=== PATIENT | female | born 1935 | race Caucasian/White ===

== ENCOUNTER 2018-09-13 20:15 | Inpatient (IN) | payer MEDICARE, OTHER ==
[2018-09-13 20:49] LABS: AADO2 Arterial 623.6 mmHg (7.0-24.0); Allen Test ACCEPTAB; Arterial Base Excess 4.6 mmol/L (-3.0-3); Arterial Blood Gas Oxygen Sat 85.9 mmHG (95.0-100.0); Arterial COHb 0.3 % (0.0-3.0); Arterial Fraction of Oxyhgb 85.5 % (93.0-99.0); Arterial HCO3 28.4 mmol/L (22.0-26.0); Arterial MetHb 0.2 % (0.0-1.5); Arterial pCO2 39.1 mmhg (35-45); Blood Gas IEPAP 15/5; MODE MASK - BIPAP; Site Right Radial
[2018-09-13] MEDS ORDERED: ETOMIDATE 20 MG INJ (21:00)
[2018-09-13] MEDS ORDERED: SUCCINYLCHOLINE CHLORIDE 100 MG/5 ML SYG IV (21:00)
[2018-09-13] MEDS: PROPOFOL 100 ML IV (22:00)
[2018-09-13] MEDS ORDERED: VANCOMYCIN IV PER PHARMACY XX (22:30)
[2018-09-13 22:43] LABS: AADO2 Arterial 604.1 mmHg (7.0-24.0); Arterial Base Excess -0.9 mmol/L (-3.0-3); Arterial Blood Gas Oxygen Sat 85.9 mmHG (95.0-100.0); Arterial COHb 0.3 % (0.0-3.0); Arterial Fraction of Oxyhgb 85.5 % (93.0-99.0); Arterial HCO3 25.4 mmol/L (22.0-26.0); Arterial MetHb 0.2 % (0.0-1.5); Arterial pCO2 49.6 mmhg (35-45); MODE VENT - AC; Site LB
[2018-09-13] MEDS ORDERED: HYDROCODONE/APAP (5/325) TAB NGT ×2 (23:00)
[2018-09-13] MEDS: MEROPENEM 1 GM/50ML(PMX) 50 ML IVPB (23:41)
[2018-09-13] MEDS ORDERED: GLUCOSE GEL 15 GRAM TUBE PO ×2 (23:45)
[2018-09-13] MEDS ORDERED: DEXTROSE 50% 50 ML SYRINGE IV ×2 (23:45)
[2018-09-13] MEDS ORDERED: GLUCOSE GEL 15 GRAM TUBE BUCCAL (23:45)
[2018-09-13] MEDS ORDERED: GLUCAGON 1 MG INJ IM (23:45)
[2018-09-14] MEDS: SOD CHLORIDE 0.9% 1,000 ML IV (00:37)
[2018-09-14] MEDS: VANCOMYCIN HCL 1.25 GM in SOD CHLORIDE 0.9% 250 ML IVPB (01:35)
[2018-09-14] MEDS: NORepinephrine 8MG/250 ML (PMX 250 ML IV ×3 (01:41→22:43)
[2018-09-14] MEDS: INSULIN ASPART [NOVOLOG] 3 ML PEN SC ×6 (01:58→21:00)
[2018-09-14] MEDS: IPRATROPIUM (NEB) 0.5 MG/2.5 ML AMP HHN (03:10)
[2018-09-14] MEDS ORDERED: ACETAMINOPHEN 650MG/20.3ML CUP NGT (03:30)
[2018-09-14] MEDS ORDERED: ALBUTEROL 0.083% (NEB) 2.5 MG/3 ML AMP HHN (05:00)
[2018-09-14 05:29] LABS: WHITE BLOOD COUNT 28.6 10^3/ul (4.8-10.8)
[2018-09-14 05:29] LABS: ABNORMAL IP MESSAGE 1; HEMATOCRIT 31.2 % (37.0-47.0); HEMOGLOBIN 9.7 g/dl (12.0-16.0); MEAN CORPUSCULAR HEMOGLOBIN 18.6 pg (29.0-33.0); MEAN CORPUSCULAR HGB CONC 31.1 g/dl (32.0-37.0); MEAN CORPUSCULAR VOLUME 59.8 fl (82.0-101.0); NUCLEATED RED BLOOD CELLS% 0.1 /100WBC (0.0-0.0); PLATELET COUNT 182 10^3/UL (140-415); RED BLOOD COUNT 5.22 10^6/ul (4.20-5.40); RED CELL DISTRIBUTION WIDTH 17.9 % (11.5-14.5)
[2018-09-14 05:43] LABS: ADD MAN DIFF? YES; POSITIVE DIFF @See below
[2018-09-14] MEDS: FUROSEMIDE 20 MG INJ IV ×2 (05:43→18:12)
[2018-09-14 05:55] LABS: ANION GAP 6 (5-13); BLOOD UREA NITROGEN 35 mg/dl (7-20); CALCIUM 7.8 mg/dl (8.4-10.2); CARBON DIOXIDE 29 mmol/L (21-31); CHLORIDE 103 mmol/L (97-110); CREATININE 0.69 mg/dl (0.44-1.00); GLUCOSE 146 mg/dl (70-220); SODIUM 138 mmol/L (135-144)
[2018-09-14 06:05] LABS: PREALBUMIN 8.3 mg/dl (17.6-36.0)
[2018-09-14 06:19] LABS: AADO2 Arterial 593.7 mmHg (7.0-24.0); Arterial Base Excess 2.1 mmol/L (-3.0-3); Arterial Blood Gas Oxygen Sat 94.8 mmHG (95.0-100.0); Arterial COHb 0.3 % (0.0-3.0); Arterial Fraction of Oxyhgb 94.1 % (93.0-99.0); Arterial HCO3 26.2 mmol/L (22.0-26.0); Arterial MetHb 0.4 % (0.0-1.5); Arterial pCO2 38.8 mmhg (35-45); MODE VENT - AC; Site LB
[2018-09-14] MEDS ORDERED: ALBUTEROL 0.083% (NEB) 2.5 MG/3 ML AMP INH (09:00)
[2018-09-14] MEDS ORDERED: IPRATROPIUM (NEB) 0.5 MG/2.5 ML AMP INH (09:00)
[2018-09-14] MEDS: LOSARTAN 25 MG TAB NGT (09:00)
[2018-09-14] MEDS: IPRATROPIUM (HFA) 12.9 GM INHALER INH ×4 (09:29→21:14)
[2018-09-14] MEDS: ALBUTEROL HFA 8 GM INHALER INH (09:29)
[2018-09-14] MEDS: NYSTATIN 30 GM POWDER BTL TOP ×3 (09:38→21:24)
[2018-09-14] MEDS: BALSAM PERU/CASTOR OIL 60 GM TUBE TOP (09:39)
[2018-09-14] MEDS: PROPOFOL 100 ML IV ×2 (09:40→22:42)
[2018-09-14] MEDS: MULTIVITAMINS/MINERALS TAB NGT (09:52)
[2018-09-14] MEDS: CITALOPRAM 20 MG TAB NGT (09:52)
[2018-09-14] MEDS: ASCORBIC ACID 500 MG TAB NGT ×2 (09:52→21:23)
[2018-09-14] MEDS: CHOLECALCIFEROL 1,000 UNIT TAB NGT (09:52)
[2018-09-14] MEDS: CA CARBONATE (250 MG/ML) 5ML CUP NGT (09:52)
[2018-09-14] MEDS: AMIODARONE 200 MG TAB NGT (09:52)
[2018-09-14] MEDS: COLLAGENASE 5 GM (UD JAR) TOP (09:52)
[2018-09-14] MEDS: APIXABAN 5 MG TABLET NGT ×2 (09:53→21:24)
[2018-09-14] MEDS: MEROPENEM 1 GM/50ML(PMX) 50 ML IVPB ×2 (09:53→21:23)
[2018-09-14] MEDS: FAMOTIDINE 20 MG TAB NGT ×2 (09:53→21:23)
[2018-09-14] MEDS: METOPROLOL 25 MG TAB NGT ×2 (09:53→21:23)
[2018-09-14 10:50] LABS: ADD UMIC YES; ANISOCYTOSIS 1+ (0-0); BAND NEUTROPHILS #M 1.4 10^3/ul (0.0-0.6); BAND NEUTROPHILS % (M) 5 % (0-4); BURR CELLS 2+ (0-0); ELLIPTO 1+ (0-0); ERYTHROBLAST% (NRBC) (M) 1 % (0-0); GIANT THROMBO% (M) 1 % (0-0); HYPOCHROMASIA 2+ (0-0); LYMPHOCYTES #M 2.2 10^3/ul (0.8-2.9); LYMPHOCYTES % (M) 8 % (15-51); METAMYELOCYTES #M 0.5 10^3/ul (0.0-0.0); METAMYELOCYTES %M 2 % (0-0); MICROCYTOSIS 2+ (0-0); MYELOCYTES #M 0.5 10^3/ul (0.0-0.0); MYELOCYTES % (M) 2 % (0-0); OVALOCYTES 1+ (0-0); PLATELET ESTIMATE NORMAL; POIKILOCYTOSIS 2+ (0-0); POLYCHROMASIA 2+ (0-0); SEG NEUT #M 24.1 10^3/ul (1.6-7.5); SEGMENTED NEUTROPHILS (M) % 83 % (39-77); SMUDGE%M 27 % (0-0); STOMATOCYTES 1+ (0-0); TARGET CELLS 1+ (0-0); TEAR DROP CELLS 1+ (0-0); UR ASCORBIC ACID 40 mg/dL (NEGATIVE); UR BACTERIA FEW /HPF (NONE SEEN); UR BILIRUBIN (Dip) NEGATIVE (NEGATIVE); UR BLOOD (Dip) NEGATIVE (NEGATIVE); UR BUDDING YEAST MANY /HPF (NONE SEEN); UR CLARITY TURBID (CLEAR); UR COLOR AMBER (YELLOW); UR GLUCOSE (Dip) NEGATIVE (NEGATIVE); UR KETONES (Dip) NEGATIVE (NEGATIVE); UR LEUKOCYTE ESTERASE (Dip) 1+ Leu/ul (NEGATIVE); UR MUCUS MANY /HPF (NONE SEEN); UR NITRITE (Dip) NEGATIVE (NEGATIVE); UR RBC > 182 /HPF (0-5); UR SPECIFIC GRAVITY (Dip) 1.018 (1.003-1.030); UR TOTAL PROTEIN (Dip) 2+ mg/dl (NEGATIVE); UR UROBILINOGEN (Dip) NEGATIVE (NEGATIVE); UR WBC 67 /HPF (0-5)
[2018-09-14 12:56] LABS: LACTIC ACID 1.8 mmol/L (0.5-2.0)
[2018-09-14] MEDS: LEVALBUTEROL (HFA) 15 GM INHALER INH ×3 (13:27→21:14)
[2018-09-14 17:48] LABS: LACTIC ACID 1.5 mmol/L (0.5-2.0)
[2018-09-14] MEDS: CASPOFUNGIN 70 MG in NS 250 ML IVPB (20:18)
[2018-09-14] MEDS: ATORVASTATIN 10 MG TAB NGT (21:23)
[2018-09-15] MEDS: INSULIN ASPART [NOVOLOG] 3 ML PEN SC ×6 (00:15→20:41)
[2018-09-15] MEDS: VANCOMYCIN 1 GM 250 ML IVPB ×2 (00:16→23:21)
[2018-09-15] MEDS: LEVALBUTEROL (HFA) 15 GM INHALER INH ×6 (01:17→21:26)
[2018-09-15] MEDS: IPRATROPIUM (HFA) 12.9 GM INHALER INH ×6 (01:17→21:26)
[2018-09-15 05:22] LABS: ADD MAN DIFF? NO
[2018-09-15 05:31] LABS: BASOPHIL # 0.1 10^3/ul (0.0-0.1); BASOPHILS % 0.2 % (0.0-2.0); EOSINOPHILS % 0.1 % (0.0-7.0); HEMATOCRIT 26.3 % (37.0-47.0); HEMOGLOBIN 8.3 g/dl (12.0-16.0); LYMPHOCYTES # 2.3 10^3/ul (0.8-2.9); LYMPHOCYTES % 11.2 % (15.0-51.0); MEAN CORPUSCULAR HEMOGLOBIN 18.7 pg (29.0-33.0); MEAN CORPUSCULAR HGB CONC 31.6 g/dl (32.0-37.0); MEAN CORPUSCULAR VOLUME 59.4 fl (82.0-101.0); MONOCYTE # 0.6 10^3/ul (0.3-0.9); MONOCYTES % 2.8 % (0.0-11.0); NEUTROPHIL # 16.9 10^3/ul (1.6-7.5); NEUTROPHILS % 82.6 % (39.0-77.0); PLATELET COUNT 168 10^3/UL (140-415); RED BLOOD COUNT 4.43 10^6/ul (4.20-5.40)
[2018-09-15 05:31] LABS: WHITE BLOOD COUNT 20.5 10^3/ul (4.8-10.8)
[2018-09-15] MEDS: FUROSEMIDE 20 MG INJ IV ×2 (06:00→17:38)
[2018-09-15 06:06] LABS: ANION GAP 3 (5-13); BLOOD UREA NITROGEN 29 mg/dl (7-20); CALCIUM 7.5 mg/dl (8.4-10.2); CARBON DIOXIDE 32 mmol/L (21-31); CHLORIDE 105 mmol/L (97-110); CREATININE 0.45 mg/dl (0.44-1.00); GLUCOSE 113 mg/dl (70-220); SODIUM 140 mmol/L (135-144)
[2018-09-15] MEDS: LOSARTAN 25 MG TAB NGT (09:00)
[2018-09-15] MEDS: METOPROLOL 25 MG TAB NGT ×2 (09:00→20:32)
[2018-09-15] MEDS: PROPOFOL 100 ML IV (09:47)
[2018-09-15] MEDS: COLLAGENASE 5 GM (UD JAR) TOP (09:47)
[2018-09-15] MEDS: BALSAM PERU/CASTOR OIL 60 GM TUBE TOP (09:47)
[2018-09-15] MEDS: NYSTATIN 30 GM POWDER BTL TOP ×3 (09:47→20:32)
[2018-09-15] MEDS: MULTIVITAMINS/MINERALS TAB NGT (09:53)
[2018-09-15] MEDS: AMIODARONE 200 MG TAB NGT (09:54)
[2018-09-15] MEDS: APIXABAN 5 MG TABLET NGT ×2 (09:54→20:29)
[2018-09-15] MEDS: CHOLECALCIFEROL 1,000 UNIT TAB NGT (09:54)
[2018-09-15] MEDS: MEROPENEM 1 GM/50ML(PMX) 50 ML IVPB ×2 (09:54→20:29)
[2018-09-15] MEDS: CA CARBONATE (250 MG/ML) 5ML CUP NGT (09:54)
[2018-09-15] MEDS: ASCORBIC ACID 500 MG TAB NGT ×2 (09:54→20:29)
[2018-09-15] MEDS: CITALOPRAM 20 MG TAB NGT (09:54)
[2018-09-15] MEDS: FAMOTIDINE 20 MG TAB NGT ×2 (09:55→20:29)
[2018-09-15] MEDS ORDERED: METOPROLOL 5 MG INJ IV (10:00)
[2018-09-15] MEDS: POTASSIUM CHLORIDE (SR) 20 MEQ TAB PO (10:17)
[2018-09-15] MEDS: DIGOXIN 500 MCG INJ IV ×2 (10:17→16:25)
[2018-09-15] MEDS: MUPIROCIN 2% 22 GM OINT TOP ×2 (12:21→20:33)
[2018-09-15] MEDS: FENTAnyl (DRIP) 1000 mcg/100mL 100 ML IV (12:23)
[2018-09-15] MEDS: CASPOFUNGIN 50 MG in SOD CHLORIDE 0.9% 250 ML IVPB (19:51)
[2018-09-15] MEDS: ATORVASTATIN 10 MG TAB NGT (20:29)
[2018-09-16] MEDS: INSULIN ASPART [NOVOLOG] 3 ML PEN SC ×6 (00:25→20:23)
[2018-09-16] MEDS: IPRATROPIUM (HFA) 12.9 GM INHALER INH ×5 (01:26→20:32)
[2018-09-16] MEDS: LEVALBUTEROL (HFA) 15 GM INHALER INH ×5 (01:26→20:32)
[2018-09-16] MEDS: PROPOFOL 100 ML IV ×3 (02:24→15:16)
[2018-09-16 05:06] LABS: ADD MAN DIFF? NO
[2018-09-16 05:16] LABS: ABNORMAL IP MESSAGE 1; BASOPHIL # 0.1 10^3/ul (0.0-0.1); BASOPHILS % 0.3 % (0.0-2.0); HEMATOCRIT 29.2 % (37.0-47.0); HEMOGLOBIN 8.9 g/dl (12.0-16.0); LYMPHOCYTES # 2.4 10^3/ul (0.8-2.9); LYMPHOCYTES % 10.2 % (15.0-51.0); MEAN CORPUSCULAR HEMOGLOBIN 18.6 pg (29.0-33.0); MEAN CORPUSCULAR HGB CONC 30.5 g/dl (32.0-37.0); MEAN CORPUSCULAR VOLUME 61.1 fl (82.0-101.0); MONOCYTE # 0.7 10^3/ul (0.3-0.9); NEUTROPHIL # 19.2 10^3/ul (1.6-7.5); NEUTROPHILS % 82.2 % (39.0-77.0); NUCLEATED RED BLOOD CELLS% 0.2 /100WBC (0.0-0.0); PLATELET COUNT 185 10^3/UL (140-415); RED BLOOD COUNT 4.78 10^6/ul (4.20-5.40); RED CELL DISTRIBUTION WIDTH 17.2 % (11.5-14.5)
[2018-09-16 05:16] LABS: WHITE BLOOD COUNT 23.4 10^3/ul (4.8-10.8)
[2018-09-16 05:43] LABS: POSITIVE DIFF @See below
[2018-09-16] MEDS: FUROSEMIDE 20 MG INJ IV ×2 (05:50→17:59)
[2018-09-16 05:57] LABS: ANION GAP 0 (5-13)
[2018-09-16 05:58] LABS: BLOOD UREA NITROGEN 38 mg/dl (7-20); CALCIUM 7.9 mg/dl (8.4-10.2); CARBON DIOXIDE 35 mmol/L (21-31); CHLORIDE 107 mmol/L (97-110); CREATININE 0.44 mg/dl (0.44-1.00); GLUCOSE 145 mg/dl (70-220); POTASSIUM 4.6 mmol/L (3.5-5.1); SODIUM 142 mmol/L (135-144)
[2018-09-16 08:10] LABS: AADO2 Arterial 402.8 mmHg (7.0-24.0); Allen Test ACCEPTAB; Arterial Blood Gas Oxygen Sat 94.1 mmHG (95.0-100.0); Arterial COHb 0.3 % (0.0-3.0); Arterial Fraction of Oxyhgb 93.5 % (93.0-99.0); Arterial MetHb 0.3 % (0.0-1.5); Arterial pCO2 55.3 mmhg (35-45); MODE VENT - AC; Site Right Radial
[2018-09-16] MEDS: MEROPENEM 1 GM/50ML(PMX) 50 ML IVPB ×2 (08:19→20:15)
[2018-09-16] MEDS: CA CARBONATE (250 MG/ML) 5ML CUP NGT (08:23)
[2018-09-16] MEDS: CHOLECALCIFEROL 1,000 UNIT TAB NGT (08:23)
[2018-09-16] MEDS: METOPROLOL 25 MG TAB NGT ×2 (08:24→20:15)
[2018-09-16] MEDS: FAMOTIDINE 20 MG TAB NGT ×2 (08:24→20:15)
[2018-09-16] MEDS: AMIODARONE 200 MG TAB NGT (08:24)
[2018-09-16] MEDS: APIXABAN 5 MG TABLET NGT ×2 (08:25→20:15)
[2018-09-16] MEDS: LOSARTAN 25 MG TAB NGT (08:25)
[2018-09-16] MEDS: CITALOPRAM 20 MG TAB NGT (08:25)
[2018-09-16] MEDS: MULTIVITAMINS/MINERALS TAB NGT (08:28)
[2018-09-16] MEDS: ASCORBIC ACID 500 MG TAB NGT ×2 (08:28→20:15)
[2018-09-16] MEDS: ALPRAZOLAM 0.25 MG TAB NGT (08:32)
[2018-09-16] MEDS: BALSAM PERU/CASTOR OIL 60 GM TUBE TOP (08:38)
[2018-09-16] MEDS: MUPIROCIN 2% 22 GM OINT TOP ×2 (08:38→20:15)
[2018-09-16] MEDS: NYSTATIN 30 GM POWDER BTL TOP ×3 (08:38→20:15)
[2018-09-16] MEDS: COLLAGENASE 5 GM (UD JAR) TOP (15:03)
[2018-09-16] MEDS: NORepinephrine 8MG/250 ML (PMX 250 ML IV (15:14)
[2018-09-16] MEDS: FENTAnyl (DRIP) 1000 mcg/100mL 100 ML IV (16:17)
[2018-09-16] MEDS: LIDOCAINE 1% (MPF) 5 ML VIAL SC (16:33)
[2018-09-16] MEDS: CASPOFUNGIN 50 MG in SOD CHLORIDE 0.9% 250 ML IVPB (20:14)
[2018-09-16] MEDS: ATORVASTATIN 10 MG TAB NGT (20:15)
[2018-09-17 00:03] LABS: VANCOMYCIN,TROUGH 9.7 ug/ml (10.0-20.0)
[2018-09-17] MEDS: VANCOMYCIN 1 GM 250 ML IVPB (00:46)
[2018-09-17] MEDS: INSULIN ASPART [NOVOLOG] 3 ML PEN SC ×6 (00:51→22:11)
[2018-09-17] MEDS: IPRATROPIUM (HFA) 12.9 GM INHALER INH ×6 (01:05→20:05)
[2018-09-17] MEDS: LEVALBUTEROL (HFA) 15 GM INHALER INH ×6 (01:05→20:05)
[2018-09-17 05:27] LABS: ADD MAN DIFF? NO
[2018-09-17] MEDS: PROPOFOL 100 ML IV (05:31)
[2018-09-17] MEDS: FUROSEMIDE 20 MG INJ IV ×2 (05:34→17:42)
[2018-09-17 05:42] LABS: WHITE BLOOD COUNT 20.2 10^3/ul (4.8-10.8)
[2018-09-17 05:42] LABS: ABNORMAL IP MESSAGE 1; BASOPHIL # 0.1 10^3/ul (0.0-0.1); BASOPHILS % 0.3 % (0.0-2.0); EOSINOPHILS % 0.1 % (0.0-7.0); HEMATOCRIT 27.5 % (37.0-47.0); HEMOGLOBIN 8.1 g/dl (12.0-16.0); LYMPHOCYTES % 9.8 % (15.0-51.0); MEAN CORPUSCULAR HEMOGLOBIN 18.2 pg (29.0-33.0); MEAN CORPUSCULAR HGB CONC 29.5 g/dl (32.0-37.0); MEAN CORPUSCULAR VOLUME 61.8 fl (82.0-101.0); MONOCYTE # 0.9 10^3/ul (0.3-0.9); MONOCYTES % 4.6 % (0.0-11.0); NEUTROPHIL # 16.3 10^3/ul (1.6-7.5); NEUTROPHILS % 81.1 % (39.0-77.0); NUCLEATED RED BLOOD CELLS # 0.1 10^3/ul (0.0-0.0); NUCLEATED RED BLOOD CELLS% 0.4 /100WBC (0.0-0.0); PLATELET COUNT 172 10^3/UL (140-415); RED BLOOD COUNT 4.45 10^6/ul (4.20-5.40); RED CELL DISTRIBUTION WIDTH 17.4 % (11.5-14.5)
[2018-09-17 05:47] LABS: POSITIVE DIFF @See below
[2018-09-17 05:51] LABS: BLOOD UREA NITROGEN 38 mg/dl (7-20); CALCIUM 7.7 mg/dl (8.4-10.2); CHLORIDE 105 mmol/L (97-110); CREATININE 0.37 mg/dl (0.44-1.00); GLUCOSE 145 mg/dl (70-220); POTASSIUM 3.6 mmol/L (3.5-5.1); SODIUM 144 mmol/L (135-144)
[2018-09-17 06:06] LABS: ANION GAP -2 (5-13); CARBON DIOXIDE 41 mmol/L (21-31)
[2018-09-17] MEDS: LOSARTAN 25 MG TAB NGT (09:00)
[2018-09-17] MEDS: METOPROLOL 25 MG TAB NGT ×2 (09:00→21:00)
[2018-09-17] MEDS: CITALOPRAM 20 MG TAB NGT (09:22)
[2018-09-17] MEDS: ASCORBIC ACID 500 MG TAB NGT ×2 (09:22→22:00)
[2018-09-17] MEDS: MEROPENEM 1 GM/50ML(PMX) 50 ML IVPB ×2 (09:22→21:58)
[2018-09-17] MEDS: METHYLPREDNISOLONE 40 MG INJ IV ×3 (09:22→22:05)
[2018-09-17] MEDS: CA CARBONATE (250 MG/ML) 5ML CUP NGT (09:22)
[2018-09-17] MEDS: CHOLECALCIFEROL 1,000 UNIT TAB NGT (09:22)
[2018-09-17] MEDS: COLLAGENASE 5 GM (UD JAR) TOP (09:22)
[2018-09-17] MEDS: AMIODARONE 200 MG TAB NGT (09:23)
[2018-09-17] MEDS: MULTIVITAMINS/MINERALS TAB NGT (09:23)
[2018-09-17] MEDS: APIXABAN 5 MG TABLET NGT ×2 (09:23→22:04)
[2018-09-17] MEDS: NYSTATIN 30 GM POWDER BTL TOP ×3 (09:27→22:07)
[2018-09-17] MEDS: MUPIROCIN 2% 22 GM OINT TOP ×2 (09:27→22:07)
[2018-09-17] MEDS: FAMOTIDINE 20 MG TAB NGT ×2 (09:27→22:00)
[2018-09-17] MEDS: BALSAM PERU/CASTOR OIL 60 GM TUBE TOP (09:28)
[2018-09-17] MEDS: MIDAZOLAM (DRIP) 50 mg/50 mL 50 ML IV (11:39)
[2018-09-17] MEDS: FENTAnyl (DRIP) 1000 mcg/100mL 100 ML IV (11:52)
[2018-09-17 16:37] LABS: HIV 1&2 ANTIBODY NEGATIVE (NEGATIVE)
[2018-09-17] MEDS: CASPOFUNGIN 50 MG in SOD CHLORIDE 0.9% 250 ML IVPB (19:23)
[2018-09-17] MEDS: NORepinephrine 8MG/250 ML (PMX 250 ML IV (19:27)
[2018-09-17] MEDS: ATORVASTATIN 10 MG TAB NGT (21:58)
[2018-09-18] MEDS: LEVALBUTEROL (HFA) 15 GM INHALER INH ×4 (01:13→19:42)
[2018-09-18] MEDS: IPRATROPIUM (HFA) 12.9 GM INHALER INH ×4 (01:13→19:41)
[2018-09-18] MEDS: INSULIN ASPART [NOVOLOG] 3 ML PEN SC ×6 (01:26→21:32)
[2018-09-18] MEDS: VANCOMYCIN HCL 1.25 GM in SOD CHLORIDE 0.9% 250 ML IVPB (01:27)
[2018-09-18] MEDS: MIDAZOLAM (DRIP) 50 mg/50 mL 50 ML IV (01:31)
[2018-09-18] MEDS: FENTAnyl (DRIP) 1000 mcg/100mL 100 ML IV ×2 (03:45→11:23)
[2018-09-18] MEDS: METHYLPREDNISOLONE 40 MG INJ IV ×3 (05:06→21:19)
[2018-09-18] MEDS: NPH, HUMAN INSULIN ISOPHANE 3ML VIAL SC ×3 (05:07→21:32)
[2018-09-18] MEDS: FUROSEMIDE 20 MG INJ IV ×2 (05:13→17:25)
[2018-09-18 05:33] LABS: ADD MAN DIFF? NO
[2018-09-18 05:37] LABS: WHITE BLOOD COUNT 17.9 10^3/ul (4.8-10.8)
[2018-09-18 05:37] LABS: ABNORMAL IP MESSAGE 1; BASOPHILS % 0.1 % (0.0-2.0); HEMATOCRIT 26.9 % (37.0-47.0); LYMPHOCYTES # 1.8 10^3/ul (0.8-2.9); LYMPHOCYTES % 10.2 % (15.0-51.0); MEAN CORPUSCULAR HEMOGLOBIN 18.5 pg (29.0-33.0); MEAN CORPUSCULAR HGB CONC 29.7 g/dl (32.0-37.0); MEAN CORPUSCULAR VOLUME 62.1 fl (82.0-101.0); MONOCYTE # 0.3 10^3/ul (0.3-0.9); MONOCYTES % 1.7 % (0.0-11.0); NEUTROPHIL # 15.1 10^3/ul (1.6-7.5); NEUTROPHILS % 84.4 % (39.0-77.0); NUCLEATED RED BLOOD CELLS # 0.1 10^3/ul (0.0-0.0); NUCLEATED RED BLOOD CELLS% 0.5 /100WBC (0.0-0.0); PLATELET COUNT 151 10^3/UL (140-415); RED BLOOD COUNT 4.33 10^6/ul (4.20-5.40)
[2018-09-18 06:04] LABS: POSITIVE DIFF @See below
[2018-09-18 06:08] LABS: BLOOD UREA NITROGEN 49 mg/dl (7-20); CALCIUM 7.6 mg/dl (8.4-10.2); CHLORIDE 100 mmol/L (97-110); CREATININE 0.47 mg/dl (0.44-1.00); GLUCOSE 218 mg/dl (70-220); MAGNESIUM 2.4 mg/dl (1.7-2.5); PHOSPHORUS 2.2 mg/dl (2.5-4.9); POTASSIUM 4.2 mmol/L (3.5-5.1); SODIUM 143 mmol/L (135-144)
[2018-09-18 06:25] LABS: ANION GAP 0 (5-13); CARBON DIOXIDE 43 mmol/L (21-31)
[2018-09-18] MEDS: CA CARBONATE (250 MG/ML) 5ML CUP NGT (08:26)
[2018-09-18] MEDS: CITALOPRAM 20 MG TAB NGT (08:26)
[2018-09-18] MEDS: CHOLECALCIFEROL 1,000 UNIT TAB NGT (08:26)
[2018-09-18] MEDS: APIXABAN 5 MG TABLET NGT ×2 (08:26→21:18)
[2018-09-18] MEDS: MEROPENEM 1 GM/50ML(PMX) 50 ML IVPB (08:26)
[2018-09-18] MEDS: ASCORBIC ACID 500 MG TAB NGT ×2 (08:27→21:18)
[2018-09-18] MEDS: AMIODARONE 200 MG TAB NGT (08:27)
[2018-09-18] MEDS: METOPROLOL 25 MG TAB NGT (08:27)
[2018-09-18] MEDS: FAMOTIDINE 20 MG TAB NGT ×2 (08:27→21:18)
[2018-09-18] MEDS: LOSARTAN 25 MG TAB NGT (08:28)
[2018-09-18] MEDS: COLLAGENASE 5 GM (UD JAR) TOP (08:28)
[2018-09-18] MEDS: MUPIROCIN 2% 22 GM OINT TOP ×2 (08:39→21:16)
[2018-09-18] MEDS: NYSTATIN 30 GM POWDER BTL TOP ×3 (08:39→21:16)
[2018-09-18] MEDS: BALSAM PERU/CASTOR OIL 60 GM TUBE TOP (08:39)
[2018-09-18] MEDS: MULTIVITAMINS/MINERALS TAB NGT (08:43)
[2018-09-18 08:53] LABS: AADO2 Arterial 380.6 mmHg (7.0-24.0); Allen Test ACCEPTAB; Arterial Base Excess 3.4 mmol/L (-3.0-3); Arterial Blood Gas Oxygen Sat 93.5 mmHG (95.0-100.0); Arterial COHb 0.9 % (0.0-3.0); Arterial Fraction of Oxyhgb 92.1 % (93.0-99.0); Arterial HCO3 28.6 mmol/L (22.0-26.0); Arterial MetHb 0.6 % (0.0-1.5); Arterial pCO2 46.6 mmhg (35-45); MODE VENT - AC; Site Right Radial
[2018-09-18] MEDS: CASPOFUNGIN 50 MG in SOD CHLORIDE 0.9% 250 ML IVPB (19:33)
[2018-09-18] MEDS: DOCUSATE SODIUM 10 MG/ML (10ML CUP) NGT (21:17)
[2018-09-18] MEDS: ATORVASTATIN 10 MG TAB NGT (21:18)
[2018-09-18] MEDS: NORepinephrine 8MG/250 ML (PMX 250 ML IV (22:49)
[2018-09-19] MEDS: VANCOMYCIN HCL 1.25 GM in SOD CHLORIDE 0.9% 250 ML IVPB (00:26)
[2018-09-19] MEDS: INSULIN ASPART [NOVOLOG] 3 ML PEN SC ×6 (00:36→20:42)
[2018-09-19] MEDS: LEVALBUTEROL (HFA) 15 GM INHALER INH ×4 (01:00→19:36)
[2018-09-19] MEDS: IPRATROPIUM (HFA) 12.9 GM INHALER INH ×4 (01:00→19:36)
[2018-09-19 05:12] LABS: ADD MAN DIFF? NO
[2018-09-19 05:35] LABS: ABNORMAL IP MESSAGE 1; BASOPHILS % 0.1 % (0.0-2.0); HEMATOCRIT 26.1 % (37.0-47.0); HEMOGLOBIN 7.8 g/dl (12.0-16.0); LYMPHOCYTES # 1.5 10^3/ul (0.8-2.9); LYMPHOCYTES % 8.4 % (15.0-51.0); MEAN CORPUSCULAR HEMOGLOBIN 18.6 pg (29.0-33.0); MEAN CORPUSCULAR HGB CONC 29.9 g/dl (32.0-37.0); MEAN CORPUSCULAR VOLUME 62.1 fl (82.0-101.0); MONOCYTE # 0.6 10^3/ul (0.3-0.9); MONOCYTES % 3.3 % (0.0-11.0); NEUTROPHIL # 14.8 10^3/ul (1.6-7.5); NEUTROPHILS % 85.9 % (39.0-77.0); NUCLEATED RED BLOOD CELLS # 0.1 10^3/ul (0.0-0.0); NUCLEATED RED BLOOD CELLS% 0.5 /100WBC (0.0-0.0); PLATELET COUNT 161 10^3/UL (140-415); RED CELL DISTRIBUTION WIDTH 18.3 % (11.5-14.5)
[2018-09-19 05:35] LABS: WHITE BLOOD COUNT 17.2 10^3/ul (4.8-10.8)
[2018-09-19 05:54] LABS: POSITIVE DIFF @See below
[2018-09-19 06:00] LABS: BLOOD UREA NITROGEN 60 mg/dl (7-20); CALCIUM 7.6 mg/dl (8.4-10.2); CHLORIDE 102 mmol/L (97-110); CREATININE 0.42 mg/dl (0.44-1.00); GLUCOSE 123 mg/dl (70-220); POTASSIUM 4.3 mmol/L (3.5-5.1); SODIUM 148 mmol/L (135-144)
[2018-09-19] MEDS: NPH, HUMAN INSULIN ISOPHANE 3ML VIAL SC ×3 (06:13→22:46)
[2018-09-19] MEDS: METHYLPREDNISOLONE 40 MG INJ IV ×3 (06:14→22:39)
[2018-09-19] MEDS: FUROSEMIDE 20 MG INJ IV (06:14)
[2018-09-19 06:23] LABS: CARBON DIOXIDE 46 mmol/L (21-31)
[2018-09-19 06:25] LABS: ANION GAP 4 (5-13)
[2018-09-19] MEDS: CHOLECALCIFEROL 1,000 UNIT TAB NGT (09:46)
[2018-09-19] MEDS: ASCORBIC ACID 500 MG TAB NGT ×2 (09:46→20:38)
[2018-09-19] MEDS: MULTIVITAMINS/MINERALS TAB NGT (09:46)
[2018-09-19] MEDS: CA CARBONATE (250 MG/ML) 5ML CUP NGT (09:46)
[2018-09-19] MEDS: APIXABAN 5 MG TABLET NGT ×2 (09:46→20:38)
[2018-09-19] MEDS: CITALOPRAM 20 MG TAB NGT (09:46)
[2018-09-19] MEDS: NYSTATIN 30 GM POWDER BTL TOP ×3 (09:47→20:39)
[2018-09-19] MEDS: MUPIROCIN 2% 22 GM OINT TOP ×2 (09:47→20:40)
[2018-09-19] MEDS: BALSAM PERU/CASTOR OIL 60 GM TUBE TOP (09:47)
[2018-09-19] MEDS: COLLAGENASE 5 GM (UD JAR) TOP (09:49)
[2018-09-19] MEDS: FAMOTIDINE 20 MG TAB NGT ×2 (09:49→20:38)
[2018-09-19] MEDS: AMIODARONE 200 MG TAB NGT (09:53)
[2018-09-19] MEDS: FENTAnyl (DRIP) 1000 mcg/100mL 100 ML IV (09:59)
[2018-09-19] MEDS: ATORVASTATIN 10 MG TAB NGT (20:38)
[2018-09-19] MEDS: CASPOFUNGIN 50 MG in SOD CHLORIDE 0.9% 250 ML IVPB (20:38)
[2018-09-20] MEDS: VANCOMYCIN HCL 1.25 GM in SOD CHLORIDE 0.9% 250 ML IVPB ×2 (00:24→23:34)
[2018-09-20] MEDS: INSULIN ASPART [NOVOLOG] 3 ML PEN SC ×6 (00:32→20:19)
[2018-09-20] MEDS: IPRATROPIUM (HFA) 12.9 GM INHALER INH ×4 (01:09→20:30)
[2018-09-20] MEDS: LEVALBUTEROL (HFA) 15 GM INHALER INH ×4 (01:09→20:30)
[2018-09-20] MEDS: METHYLPREDNISOLONE 40 MG INJ IV ×3 (05:34→21:45)
[2018-09-20] MEDS: NPH, HUMAN INSULIN ISOPHANE 3ML VIAL SC ×3 (05:37→21:47)
[2018-09-20 05:54] LABS: ADD MAN DIFF? NO
[2018-09-20] MEDS: FENTAnyl (DRIP) 1000 mcg/100mL 100 ML IV ×2 (05:57→15:59)
[2018-09-20 06:14] LABS: WHITE BLOOD COUNT 13.3 10^3/ul (4.8-10.8)
[2018-09-20 06:14] LABS: ABNORMAL IP MESSAGE 1; BASOPHILS % 0.1 % (0.0-2.0); HEMATOCRIT 25.8 % (37.0-47.0); HEMOGLOBIN 7.6 g/dl (12.0-16.0); LYMPHOCYTES # 1.1 10^3/ul (0.8-2.9); LYMPHOCYTES % 8.3 % (15.0-51.0); MEAN CORPUSCULAR HEMOGLOBIN 18.5 pg (29.0-33.0); MEAN CORPUSCULAR HGB CONC 29.5 g/dl (32.0-37.0); MEAN CORPUSCULAR VOLUME 62.9 fl (82.0-101.0); MONOCYTE # 0.6 10^3/ul (0.3-0.9); MONOCYTES % 4.1 % (0.0-11.0); NEUTROPHIL # 11.4 10^3/ul (1.6-7.5); NEUTROPHILS % 85.7 % (39.0-77.0); NUCLEATED RED BLOOD CELLS # 0.1 10^3/ul (0.0-0.0); NUCLEATED RED BLOOD CELLS% 0.4 /100WBC (0.0-0.0); PLATELET COUNT 135 10^3/UL (140-415); RED CELL DISTRIBUTION WIDTH 18.4 % (11.5-14.5)
[2018-09-20 06:18] LABS: BLOOD UREA NITROGEN 67 mg/dl (7-20); CALCIUM 7.9 mg/dl (8.4-10.2); CHLORIDE 105 mmol/L (97-110); GLUCOSE 167 mg/dl (70-220); SODIUM 148 mmol/L (135-144)
[2018-09-20 06:25] LABS: POSITIVE DIFF @See below
[2018-09-20 06:42] LABS: ANION GAP -4 (5-13)
[2018-09-20 06:43] LABS: CARBON DIOXIDE 47 mmol/L (21-31)
[2018-09-20] MEDS: CHOLECALCIFEROL 1,000 UNIT TAB NGT (08:19)
[2018-09-20] MEDS: APIXABAN 5 MG TABLET NGT ×2 (08:19→20:16)
[2018-09-20] MEDS: ASCORBIC ACID 500 MG TAB NGT ×2 (08:19→20:16)
[2018-09-20] MEDS: FAMOTIDINE 20 MG TAB NGT ×2 (08:19→20:16)
[2018-09-20] MEDS: CA CARBONATE (250 MG/ML) 5ML CUP NGT (08:19)
[2018-09-20] MEDS: COLLAGENASE 5 GM (UD JAR) TOP (08:19)
[2018-09-20] MEDS: MULTIVITAMINS/MINERALS TAB NGT (08:19)
[2018-09-20] MEDS: MUPIROCIN 2% 22 GM OINT TOP ×2 (08:20→20:17)
[2018-09-20] MEDS: BALSAM PERU/CASTOR OIL 60 GM TUBE TOP (08:20)
[2018-09-20] MEDS: FUROSEMIDE 20 MG TAB PO (08:20)
[2018-09-20] MEDS: NYSTATIN 30 GM POWDER BTL TOP ×3 (08:20→20:17)
[2018-09-20] MEDS: CITALOPRAM 20 MG TAB NGT (08:21)
[2018-09-20] MEDS: AMIODARONE 200 MG TAB NGT (08:21)
[2018-09-20] MEDS: ATORVASTATIN 10 MG TAB NGT (20:16)
[2018-09-20] MEDS: CASPOFUNGIN 50 MG in SOD CHLORIDE 0.9% 250 ML IVPB (20:16)
[2018-09-20] MEDS: MIDAZOLAM (DRIP) 50 mg/50 mL 50 ML IV (23:39)
[2018-09-20 23:55] LABS: VANCOMYCIN,TROUGH 17.9 ug/ml (10.0-20.0)
[2018-09-21] MEDS: INSULIN ASPART [NOVOLOG] 3 ML PEN SC ×4 (00:47→13:22)
[2018-09-21] MEDS: IPRATROPIUM (HFA) 12.9 GM INHALER INH ×3 (01:32→14:19)
[2018-09-21] MEDS: LEVALBUTEROL (HFA) 15 GM INHALER INH ×3 (01:32→14:19)
[2018-09-21 05:37] LABS: ADD MAN DIFF? NO
[2018-09-21] MEDS: METHYLPREDNISOLONE 40 MG INJ IV ×2 (05:43→13:19)
[2018-09-21] MEDS: NPH, HUMAN INSULIN ISOPHANE 3ML VIAL SC ×2 (05:47→13:52)
[2018-09-21 05:58] LABS: WHITE BLOOD COUNT 13.9 10^3/ul (4.8-10.8)
[2018-09-21 05:58] LABS: BASOPHILS % 0.1 % (0.0-2.0); HEMATOCRIT 27.2 % (37.0-47.0); HEMOGLOBIN 7.9 g/dl (12.0-16.0); LYMPHOCYTES # 1.2 10^3/ul (0.8-2.9); LYMPHOCYTES % 8.4 % (15.0-51.0); MEAN CORPUSCULAR HEMOGLOBIN 18.5 pg (29.0-33.0); MEAN CORPUSCULAR VOLUME 63.6 fl (82.0-101.0); MONOCYTE # 0.7 10^3/ul (0.3-0.9); MONOCYTES % 5.1 % (0.0-11.0); NEUTROPHIL # 11.7 10^3/ul (1.6-7.5); NEUTROPHILS % 84.2 % (39.0-77.0); NUCLEATED RED BLOOD CELLS # 0.1 10^3/ul (0.0-0.0); NUCLEATED RED BLOOD CELLS% 0.6 /100WBC (0.0-0.0); PLATELET COUNT 142 10^3/UL (140-415); RED BLOOD COUNT 4.28 10^6/ul (4.20-5.40); RED CELL DISTRIBUTION WIDTH 18.5 % (11.5-14.5)
[2018-09-21 06:40] LABS: BLOOD UREA NITROGEN 74 mg/dl (7-20); CALCIUM 7.9 mg/dl (8.4-10.2); CHLORIDE 105 mmol/L (97-110); CREATININE 0.36 mg/dl (0.44-1.00); GLUCOSE 147 mg/dl (70-220); POTASSIUM 5.6 mmol/L (3.5-5.1)
[2018-09-21 06:41] LABS: ANION GAP -5 (5-13); CARBON DIOXIDE 48 mmol/L (21-31); SODIUM 148 mmol/L (135-144)
[2018-09-21 06:50] LABS: PROCALCITONIN 0.13 ng/mL (0.00-0.10)
[2018-09-21] MEDS: CA CARBONATE (250 MG/ML) 5ML CUP NGT (08:20)
[2018-09-21] MEDS: CHOLECALCIFEROL 1,000 UNIT TAB NGT (08:20)
[2018-09-21] MEDS: COLLAGENASE 5 GM (UD JAR) TOP (08:20)
[2018-09-21] MEDS: FAMOTIDINE 20 MG TAB NGT (08:21)
[2018-09-21] MEDS: SENNA TAB NGT (08:21)
[2018-09-21] MEDS: AMIODARONE 200 MG TAB NGT (08:21)
[2018-09-21] MEDS: FUROSEMIDE 20 MG TAB PO (08:21)
[2018-09-21] MEDS: APIXABAN 5 MG TABLET NGT (08:22)
[2018-09-21] MEDS: ASCORBIC ACID 500 MG TAB NGT (08:22)
[2018-09-21] MEDS: CITALOPRAM 20 MG TAB NGT (08:22)
[2018-09-21] MEDS: BALSAM PERU/CASTOR OIL 60 GM TUBE TOP (08:23)
[2018-09-21] MEDS: NYSTATIN 30 GM POWDER BTL TOP ×2 (08:23→13:19)
[2018-09-21] MEDS: MUPIROCIN 2% 22 GM OINT TOP (08:23)
[2018-09-21] MEDS: MULTIVITAMINS/MINERALS TAB NGT (08:35)
[2018-09-21 08:51] LABS: AADO2 Arterial 324.2 mmHg (7.0-24.0); Allen Test ACCEPTAB; Arterial Base Excess 16.9 mmol/L (-3.0-3); Arterial Blood Gas Oxygen Sat 92.5 mmHG (95.0-100.0); Arterial COHb 0.2 % (0.0-3.0); Arterial Fraction of Oxyhgb 91.9 % (93.0-99.0); Arterial HCO3 43.3 mmol/L (22.0-26.0); Arterial MetHb 0.5 % (0.0-1.5); MODE VENT - AC; Site Right Radial
[2018-09-21] MEDS: NA POLYST SULFON 15 GM/60 ML BTL NGT (11:11)
[2018-09-21] MEDS: FENTAnyl (DRIP) 1000 mcg/100mL 100 ML IV (11:33)
[2018-09-21] MEDS ORDERED: ATROPINE SULFATE 1% 5ML SL (16:30)
[2018-09-21] MEDS ORDERED: SCOPOLAMINE 1.5 MG PATCH TRANSDERM (16:30)
[2018-09-21] MEDS ORDERED: morphine 2 MG INJ IV (16:30)
[2018-09-21] MEDS ORDERED: ACETAMINOPHEN 650 MG SUPP PR (16:30)
[2018-09-21] MEDS ORDERED: ONDANSETRON 4 MG INJ IV (16:30)
[2018-09-21] MEDS: morphine (DRIP) 100 MG/100 ML 100 ML IV (17:32)
[2018-09-21] MEDS: LORAZEPAM 2 MG INJ IV (17:43)
[2018-09-21] MEDS: morphine 10 MG INJ IV (17:44)
[2018-09-21] MEDS ORDERED: VANCOMYCIN 1 GM 250 ML IVPB (23:00)
[2018-09-22 23:48] LABS: CRYPTOCOCCAL ANTIGEN - SOURCE SERUM
== END 2018-09-21 20:50 | disposition expired | DRG 870 ==
LOC: ICU 20:15
PROC: 5A1955Z Respiratory Ventilation, Greater than 96 Consecutive Hours (ICD-10-PCS; principal; 2018-09-13)
PROC: 0BH17EZ Insertion of Endotracheal Airway into Trachea, Via Natural or Artificial Opening (ICD-10-PCS; 2018-09-13)
PROC: 05H633Z Insertion of Infusion Device into Left Subclavian Vein, Percutaneous Approach (ICD-10-PCS; 2018-09-14)
PROC: 02HV33Z Insertion of Infusion Device into Superior Vena Cava, Percutaneous Approach (ICD-10-PCS; 2018-09-16)
DX: A41.9 Sepsis, unspecified organism (principal); J15.212 Pneumonia due to Methicillin resistant Staphylococcus aureus; B37.1 Pulmonary candidiasis; J96.02 Acute respiratory failure with hypercapnia; R65.21 Severe sepsis with septic shock; I50.33 Acute on chronic diastolic (congestive) heart failure; J96.01 Acute respiratory failure with hypoxia; J44.0 Chronic obstructive pulmonary disease with (acute) lower respiratory infection; B37.49 Other urogenital candidiasis; N17.9 Acute kidney failure, unspecified; Y95 Nosocomial condition; D69.6 Thrombocytopenia, unspecified; D63.8 Anemia in other chronic diseases classified elsewhere; F03.90 Unspecified dementia, unspecified severity, without behavioral disturbance, psychotic disturbance, mood disturbance, and anxiety; F32.9 Major depressive disorder, single episode, unspecified; I48.0 Paroxysmal atrial fibrillation; R13.10 Dysphagia, unspecified; I11.0 Hypertensive heart disease with heart failure; L89.152 Pressure ulcer of sacral region, stage 2; Z66 Do not resuscitate; Z51.5 Encounter for palliative care; Z90.2 Acquired absence of lung [part of]; Z85.118 Personal history of other malignant neoplasm of bronchus and lung; Z22.322 Carrier or suspected carrier of Methicillin resistant Staphylococcus aureus; Z79.84 Long term (current) use of oral hypoglycemic drugs; Z79.82 Long term (current) use of aspirin
CPT/HCPCS: 31500; 36569; 36600; 71045; 76937; 80048; 80202; 81001; 82803; 82962; 83605; 83735; 84100; 84134; 84145; 85025; 86635; 86641; 86703; 87040-91; 87070; 87081; 87086; 89220; 93005; 94002; 94003; 94640; 94660; 94770